=== PATIENT | female | born 1945 | race Caucasian/White ===

== ENCOUNTER 2024-01-21 15:39 | Emergency (ER) | payer OTHER ==
[~2024-01-21] VITALS: Ht 162.6 cm; Wt 73.0 kg
[~2024-01-21 15:39] MED LIST: ACET-3163 MT; LISI20TA31 PO
[2024-01-21 15:41] VITALS: O2SAT 100
[2024-01-21] MEDS ORDERED: ACETAMINOPHEN 500MG TABLET PO ONE (16:00)
[2024-01-21] MEDS: ACETAMINOPHEN 500MG TABLET PO NR (18:40)
[2024-01-21] MEDS ORDERED: HYDR-4001 MT (18:56)
[2024-01-21] MEDS ORDERED: GABA-534 MT (18:56)
[2024-01-21] MEDS ORDERED: IBUP-1523 MT (18:56)
[2024-01-21 19:46] VITALS: BP 155/81; PULSE 84; RESP 16; TEMP 97.8
== END 2024-01-21 19:50 | disposition home or self-care (01) ==
LOC: ER 15:39
DX: M54.50 Low back pain, unspecified (principal); E11.9 Type 2 diabetes mellitus without complications; I10 Essential (primary) hypertension; Z79.899 Other long term (current) drug therapy
CPT/HCPCS: 72131; 99284